=== PATIENT | male | born 1980 | race Caucasian/White ===

== ENCOUNTER 2025-05-21 08:33 | Emergency (ER) | payer OTHER, SELFPAY ==
--- OUTSIDE RECORDS SUMMARY | 2016-03-11 08:50 | XMS_ITS | Continuity of Care Document ---
Author Organization [facility] Address [address] [place] [address] Phone Care Team Providers Care Nutrition Tech Name Role Phone Mayur Fay MD Unavailable Unavailable Allergies, Adverse Reactions, Alerts Substance Reaction Status Criticality No Known Allergies Active No Inform ation Medications Medication Instructions Dosage Effective Dates (start - stop) Status Comments Naprosyn 500 mg tablet take 1 tablet by oral route 2 times every day with food 500 MG - Active Procedures Procedure Date OFFICE/OUTPATIENT VISIT EST POSTOP FOLLOW-UP VISIT POSTOP FOLLOW-UP VISIT POSTOP FOLLOW-UP VISIT POSTOP FOLLOW-UP VISIT OFFICE/OUTPATIENT VISIT EST OFFICE/OUTPATIENT VISIT EST OFFICE/OUTPATIENT VISIT EST RADEX SPI LUMBOSAC 2/3 VIEWS DISABILITY EXAMINATION Advance Directives Directive Yes / No Effective Date File Name No Information Encounters Encounter Description Practice Location Reason(s) For Visit Diagnoses Date Provider Providers Copied on Encounter OFFICE/OUTPA TIENT VISIT EST [facility], [address] [facility], [place], [address], [place] tel:[phone] [facility] My back pain is about the same (chief complaint) Body mass index (BMI) 28.0-28.9, adultPersonal history of nicotine dependenceLeft lumbar radiculopathyHNP (herniated nucleus pulposus), lumbar 201 6 Sumeet Merchant. [address] [place], [place], [address] . tel:[phone] [facility], [address], [address], tel:[phone] [facility] My back pain is 4/10 (chief complaint) Body mass index (BMI) 28.0-28.9, adultPersonal history of nicotine dependenceLeft lumbar radiculopathyHNP (herniated nucleus pulposus), lumbar 6 Fay Mayur. [address] [place], [place], [address] . tel: [phone] [facility], [address], [address], [place] tel:[phone] [facility] Body mass index (BMI) 28.0-28.9, adultLeft lumbar radiculopathyHNP (herniated nucleus pulposus), lumbarPersonal history of nicotine dependence 6 Fay Mayur. [address] [place], [place], [address] . tel: [phone] [facility], [address], [address], tel:[phone] [facility] I am still having some pain and cramping (chief complaint) Lumbar radiculopathyHNP (herniated nucleus pulposus), lumbarBody mass index (BMI) 28.0-28.9, adultPersonal history of nicotine dependence 6 Fay Mayur. [address] [place], [place], [address] . tel: [phone] [facility], [address], [address], [place] tel:[phone] [facility] I am doing better. I still have some pain in my leg (chief complaint) post-op (chief complaint) Body mass index (BMI) 28.0-28.9, adultPersonal history of nicotine dependenceLumbar radiculopathyHNP (herniated nucleus pulposus), lumbar Apr-2 6 Fay Mayur. [address] [place], [place], [address] . tel: [phone] [facility], [address], [address], [place] tel:[phone] [facility] Lumbar radiculopathyHNP (herniated nucleus pulposus), lumbar Mar-2 -201 6 Fay Mayur. [address] [place], [address] . tel: [phone] OFFICE/OUTPA TIENT VISIT EST [facility], [address], [address], [place] tel:[phone] [facility] My back and leg are better but not great (chief complaint) Body mass index (BMI) 28.0-28.9, adultLumbar radiculopathyHNP (herniated nucleus pulposus), lumbarPersonal history of nicotine dependence Oct- 6 Fay Mayur. [address] [place], [place], [address] . tel: [phone] OFFICE/OUTPA TIENT VISIT EST [facility], [address], [address], [place] tel:[phone] [facility] LBP and left leg pain (chief complaint) Lumbar radiculopathyHNP (herniated nucleus pulposus), lumbar Oct-08 08-201 6 Jose Galvan. [address] [place], [place], [address] . tel: [phone] OFFICE/OUTPA TIENT VISIT EST [facility], [address], [address], [place] tel:[phone] [facility] LBP and left leg pain (chief complaint) HNP (herniated nucleus pulposus), lumbarLumbar radiculopathy Fe- 6 Jose Galvan. [address] [place], [place], [address] . tel: [phone] [facility], [address], [address], [place] tel:[phone] [facility] Lumbar radiculopathyHNP (herniated nucleus pulposus), lumbar Feb-1 9-201 6 Sumeet Merchant. [address], [place], [place], [address] . tel: [phone] DISABILITY EXAMINATION [facility], [address], [place], [address], [place] tel:[phone] [facility] My left leg is killing me (chief complaint) Body mass index (BMI) 28.0-28.9, adultPersonal history of nicotine dependenceLow back painLumbar radiculopathyHNP (herniated nucleus pulposus), lumbar Feb-0 1-201 6 Sumeet Merchant. [address], [place], [place], [address] . tel: [phone] Family History Family Member Type Diagnosis Age At Onset Father Problem (finding) Alive and well Mother Problem (finding) Alive and well Payers Payer name Insurance type Covered libertarian ID Authoriza tijoel(s) No Information Social History Type Description Quantity Date Captured Comments Alcohol Use Details No Caffeine Use Details Unknown Tobacco Use Status Light cigarette smok er (1-9 cigs/day) Smoking Status Light tobacco smoker Smoking Tobacco Use Details Cigarette: No Details Available Cigarette: No Details Available Sex Male Vital Signs Date / Time: Height Weight BMI Pulse Rate Blood Pressure Temperature Respiratory Rate Body Surface Area Head Circumference Head Circ. Percentile Wt./Kaushal. Percentile BMI percentile Pulse Ox Inhaled Ox 1:47 PM 70.00 in 90.718 kg (200.00 lbs) 28.7 0 kg/m jasoner (2) Chief Complaint And Reason For Visit From encounter dated '03/11/2016 13:50'. My back pain is about the same (chief complaint) Reason For Referral Reason For Referral No Information Plan Of Treatment Date Type Action Status Goal Tobacco cessation counseling completed Goal Tobacco cessation counseling completed Goal Tobacco cessation counseling completed Goal Tobacco cessation counseling completed Goal Tobacco cessation counseling completed Goal Tobacco cessation counseling completed Referral Ordered: RADEX CH 2 VIEWS FRNT&LAT ordered Referral Ordered: INJ FORAMEN EPIDURAL L/S LT S1 Appointment date/timeframe: 09/29/2015 ordered Referral Ordered: RADEX SPI LUMBOSAC 2/3 VIEWS ordered History Of Present Illness Encounter Date Complaint History Of Prese nt Illness My back pain is about the same My back pain is 4/10 I am still having some pain and cramping I am doing better. I still have some pain in my leg My back and leg are better but n ot great LBP and left leg pain LBP and left leg pain My left leg is killing me Functional Status Date Functional Assessmen t No Information Instructions Date Instruction Additional Infor mation Continue home exercise program. Related to Left lumbar radiculopathy Continue home exercise program. Related to Lumbar radiculopathy Take medication as directed. Rel ated to Lumbar radiculopathy Rest, ice and elevate. Related t o Lumbar radiculopathy Rest, ice and elevate. Related t o Lumbar radiculopathy Take medication as directed. Rel ated to Lumbar radiculopathy Dietary needs education Related to Body mass index (BMI) 28.0-28.9, adult Assessments Type Assessment Date assessment Body mass index (BMI) 28.0-28.9, adult assessment Personal history of nicotine dep endence assessment Left lumbar radiculopathy assessment HNP (herniated nucleus pulposus) , lumbar Patient Care Teams Name Effective Dates (start - stop) Status Members No Information
--- OUTSIDE RECORDS SUMMARY | 2016-03-11 08:50 | XMS_ITS | Continuity of Care Document ---
Author Organization [facility] Address [address] [place] [address] Phone Care Team Providers Care Technology Officer Name Role Phone Mayur Fay MD Unavailable [...] OFFICE/OUTPA TIENT VISIT EST [facility], [address] [facility], [place], [address], [place] tel:[phone] [facility] My back pain is about the same (chief complaint) Body mass index (BMI) 28.0-28.9, adultPersonal history of nicotine dependenceLeft lumbar radiculopathyHNP (herniated nucleus pulposus), lumbar 201 6 Sumeet Merchant. [address] [place], [place], [address] . tel:[phone] [facility], [address], [address], tel:[phone] [facility] My back pain is 4/10 (chief complaint) Body mass index (BMI) 28.0-28.9, adultPersonal history of nicotine dependenceLeft lumbar radiculopathyHNP (herniated nucleus pulposus), lumbar 6 Fay Mayur. [address] [place], [place], [address] . tel: [phone] [facility], [address], [address], [place] tel:[phone] [facility] Body mass index (BMI) 28.0-28.9, adultLeft lumbar radiculopathyHNP (herniated nucleus pulposus), lumbarPersonal history of nicotine dependence 6 Fay Mayur. [address] [place], [place], [address] . tel: [phone] [facility], [address], [address], tel:[phone] [facility] I am still having some pain and cramping (chief complaint) Lumbar radiculopathyHNP (herniated nucleus pulposus), lumbarBody mass index (BMI) 28.0-28.9, adultPersonal history of nicotine dependence 6 Fay Mayur. [address] [place], [place], [address] . tel: [phone] [facility], [address], [address], [place] tel:[phone] [facility] I am doing better. I still have some pain in my leg (chief complaint) post-op (chief complaint) Body mass index (BMI) 28.0-28.9, adultPersonal history of nicotine dependenceLumbar radiculopathyHNP (herniated nucleus pulposus), lumbar Apr-2 6 Fay Mayur. [address] [place], [place], [address] . tel: [phone] [facility], [address], [address], [place] tel:[phone] [facility] Lumbar radiculopathyHNP (herniated nucleus pulposus), lumbar Mar-2 -201 6 Fya Mayur. [address] [place], [place], [address] . tel: [phone] OFFICE/OUTPA TIENT VISIT EST [facility], [address], [address], [place] tel:[phone] [facility] My back and leg are better but not great (chief complaint) Body mass index (BMI) 28.0-28.9, adultLumbar radiculopathyHNP (herniated nucleus pulposus), lumbarPersonal history of nicotine dependence Oct- 6 Fay Mayur. [address] [place], [place], [address] . tel: [phone] OFFICE/OUTPA TIENT VISIT EST [facility], [address], [address], [place] tel:[phone] [facility] LBP and left leg pain (chief complaint) Lumbar radiculopathyHNP (herniated nucleus pulposus), lumbar Oct-08 08-201 6 Jose Galvan. [address] [place], [place], [address] . tel: [phone] OFFICE/OUTPA TIENT VISIT EST [facility], [address], [address], [place] tel:[phone] [facility] LBP and left leg pain (chief complaint) HNP (herniated nucleus pulposus), lumbarLumbar radiculopathy Fe- 6 Jose Galvan. [address] [place], [place], [address] . tel: [phone] [facility], [address], [address], [place] tel:[phone] [facility] Lumbar radiculopathyHNP (herniated nucleus pulposus), lumbar Feb-1 9-201 6 Sumeet Merchant. [address], [place], [place], [address] . tel: [phone] DISABILITY EXAMINATION [facility], [address], [place], [address], [place] tel:[phone] [facility] My left leg is killing me (chief complaint) Body mass index (BMI) 28.0-28.9, adultPersonal history of nicotine dependenceLow back painLumbar radiculopathyHNP (herniated nucleus pulposus), lumbar Feb-0 1-201 6 Sumeet Merchant. [address], [place], [place], [address] . tel: [phone] Family History Family Member Type Diagnosis Age At Onset Father Problem (finding) Alive and well Mother Problem (finding) Alive and well Payers Payer name Insurance type Covered constitution party ID Authoriza tijoel(s) No Information Social History [...]
--- OUTSIDE RECORDS SUMMARY | 2022-05-20 04:36 | XMS_ITS | Continuity of Care Document ---
Author Organization [facility] Address [address] [place] [address] [address] [place] [address] Phone Care Team Providers Care Roller Coaster Designer Name Role Phone Derrell Garcia PT Unavailable Unavailable Procedures Procedure Date Therapeutic Activities Progress Note Neuromuscular Re-Ed Therapeutic Exercise Therapeutic Activities Neuromuscular Re-Ed Therapeutic Exercise Neuromuscular Re-Ed Therapeutic Activities Therapeutic Exercise Therapeutic Activities Neuromuscular Re-Ed Therapeutic Exercise Manual Therapy Neuromuscular Re-Ed Therapeutic Exercise Manual Therapy Therapeutic Activities PT Evaluation Low Complexity Therapeutic Activities Therapeutic Exercise Neuromuscular Re-Ed Manual Therapy PHYSICAL PERFORMANCE TEST WORK CONDITIONING INITIAL 2 HOURS WORK CONDITIONING ADD'L HRS WORK CONDITIONING INITIAL 2 HOURS WORK CONDITIONING ADD'L HRS WORK COND/WORK HARD RE EVAL WORK CONDITIONING INITIAL 2 HOURS WORK CONDITIONING ADD'L HRS WORK CONDITIONING INITIAL 2 HOURS WORK CONDITIONING ADD'L HRS WORK CONDITIONING INITIAL 2 HOURS WORK CONDITIONING ADD'L HRS WORK CONDITIONING INITIAL 2 HOURS WORK CONDITIONING ADD'L HRS WORK CONDITIONING INITIAL 2 HOURS WORK CONDITIONING ADD'L HRS WORK CONDITIONING INITIAL 2 HOURS WORK CONDITIONING ADD'L HRS Work Cond Initial Report THERAPEUTIC EXERCISES NEUROMUSCULAR RE-ED MANUAL THERAPY FUNC ACTIVITY THERAPEUTIC EXERCISES NEUROMUSCULAR RE-ED MANUAL THERAPY FUNC ACTIVITY THERAPEUTIC EXERCISES NEUROMUSCULAR RE-ED MANUAL THERAPY FUNC ACTIVITY THERAPEUTIC EXERCISES NEUROMUSCULAR RE-ED MANUAL THERAPY FUNC ACTIVITY THERAPEUTIC EXERCISES NEUROMUSCULAR RE-ED MANUAL THERAPY FUNC ACTIVITY PT EVALUATION THERAPEUTIC EXERCISES HOT/COLD PACK THERAPEUTIC EXERCISES NEUROMUSCULAR RE-ED MANUAL THERAPY FUNC ACTIVITY PT RE-EVALUATION THERAPEUTIC EXERCISES NEUROMUSCULAR RE-ED MANUAL THERAPY FUNC ACTIVITY HOT/COLD PACK ELECTRIC STIMULATION UNATT THERAPEUTIC EXERCISES NEUROMUSCULAR RE-ED MANUAL THERAPY FUNC ACTIVITY HOT/COLD PACK ELECTRIC STIMULATION UNATT THERAPEUTIC EXERCISES NEUROMUSCULAR RE-ED MANUAL THERAPY FUNC ACTIVITY HOT/COLD PACK ELECTRIC STIMULATION UNATT THERAPEUTIC EXERCISES NEUROMUSCULAR RE-ED MANUAL THERAPY FUNC ACTIVITY HOT/COLD PACK ELECTRIC STIMULATION UNATT b-25-2016 PT EVALUATION THERAPEUTIC EXERCISES HOT/COLD PACK ELECTRIC STIMULATION [facility] Advance Directives Directive Yes / No Effective Date File Name No Information Encounters Encounter Description Practice Location Reason(s) For Visit Diagnoses Date Provider Providers Copied on Encounter [facility] [address], [place], [place], [address], tel:[phone] [place] No Information 2 Jose Derrell. . [facility], [place], [place], [address], [place] tel:[phone] [place] No Information Apr- 2 Jose Derrell. . Referring Provider: Ramon Fay, [address] [facility] [address], [place], [address]. tel:[phone] [facility] [address], [place], [place], [address], [place] tel:[phone] [place] No Information Sep-2 2 Jose Derrell. . Referring Provider: Ramon Fay [address] [place] [address], [place], [address]. tel:[phone] [facility], [place], [place], [address], [place] tel:[phone] [place] No Information Sep-2 2 Jose Derrell. . Referring Provider: Ramon Fay [address] [place] [address], [place], [address]. tel:[phone] [facility] [address], [place], [place], [address], [place] tel:[phone] [place] No Information Apr- 2 Aurelia Stone. . Referring Provider: Ramon Fay [address], [place], [address]. tel:[phone] [facility], [place], [place], [address], [place] tel:[phone] [place] No Information 2 Modglin Andrei. . Referring Provider: Ramon Fay, [address] [facility] [address], [place], [address]. tel:[phone] [facility] [address], [place], [place], [address], tel:[phone] [place] No Information 2 Modglin Andrei. . Referring Provider: Ramon Fay, [address] [facility] [address], [place], [address]. tel:[phone] [facility] [address], [place], [place], [address], tel:[phone] [place] No Information 6 Zuccarello John. . Referring Provider: Ramon Fay [address] [address], [place], [address]. tel:[phone] [facility] [address], [place], [place], [address], [place] tel:[phone] [place] No Information 6 [place]. Referring Provider: Ramon Fay, [address] [address], [place], [address]. tel:[phone] [facility] [address] [facility] [address], [place], [place], [address], [place] tel:[phone] [place] No Information 6 [place]. Referring Provider: Ramon Fay [address] [address], [place], [address]. tel:[phone] [facility] [address], [place], [place], [address], [place] tel:[phone] [place] No Information 6 [place]. Referring Provider: Ramon Fay [address] [address], [place], [address]. tel:[phone] [facility], [place], [place], [address], [place] tel:[phone] [place] No Information 6 Hussein Dvoe. [address] [place] [address], [address], [place], [place], [facility], . tel:[phone] Referring Provider: Ramon Fay, [address], [place], [address]. tel:[phone] [facility], [place], [place], [address], [place] tel:[phone] [place] No Information 0 6 [facility] [place] Referring Provider: Ramon Fay, [address], [place], [address]. tel:[phone] [facility] [address], [place], [place], [address], [place] tel:[phone] [place] No Information 6 [facility] Referring Provider: Ramon Fay [address], [place], [address]. tel:[phone] [facility], [place], [place], [address], [place] tel:[phone] [place] No Information 6 Laz Mallory. [address] [place] [address], [address], [place], [place], [facility], [place]. tel:[phone] Referring Provider: Ramon Fay [address], [place], [address]. tel:[phone] [facility], [place], [place], [address], [place] tel:[phone] [place] No Information 3 6 [facility]. Referring Provider: Ramon Fay [address], [place], [address]. tel:[phone] [facility], [address], [place], [place], [address], [place] tel:[phone] [place] No Information 6 Zaragoza Gabriel. , [place], [place]. Referring Provider: Ramon Fay, [address], [place], [address]. tel:[phone] [facility] [address], [place], [place], [address], [place] tel:[phone] [place] No Information 6 Zaragoza Gabriel. , [place], [place]. Referring Provider: Ramon Fay, [address], [place], [address]. tel:[phone] [facility], [address], [place], [place], [address], [place] tel:[phone] [place] No Information 6 Zaragoza Gabriel. , [place], [place]. Referring Provider: Ramon Fay, [address], [place], [address]. tel:[phone] [facility], [place], [place], [address], [place] tel:[phone] [place] No Information 6 Zaragoza Gabriel. , [place], [place]. Referring Provider: Ramon Fay, [address], [place], [address]. tel:[phone] [facility] [address], [place], [place], [address], [place] tel:[phone] [place] No Information 6 Zaragoza Gabriel. , [place], [place]. Referring Provider: Ramon Fay, [address], [place], [address]. tel:[phone] [facility], [place], [place], [address], [place] tel:[phone] [place] No Information 6 Zaragoza Gabriel. , [place], [place]. Referring Provider: Ramon Fay, [address], [place], [address]. tel:[phone] [facility] [address], [place], [place], [address], [place] tel:[phone] [place] No Information May-1 9-201 6 Zaragoza Gabriel. , [place], [place]. Referring Provider: Ramon Fay [address] [place] [address], [place], [address]. tel:[phone] [facility] [address], [place], [address], [place] tel:[phone] [place] No Information Mar-1 0-201 6 Zaragoza Gabriel. , [place], [place]. Referring Provider: Ramon Fay, [address], [place], [address]. tel:[phone] [facility] [address], [place], [address], [place] tel:[phone] [place] No Information Mar-0 8-201 6 Zaragoza Gabriel. , [place], [place]. Referring Provider: Ramon Fay [address], [place], [address]. tel:[phone] [facility] [address], [place], [place], [address], [place] tel:[phone] [place] No Information Mar-0 3-201 6 Zaragoza Gabriel. , [place], [place]. Referring Provider: Ramon Fay [address], [place], [address]. tel:[phone] [facility] [address], [place], [place], [address], [place] tel:[phone] [place] No Information Mar-0 1-201 6 Zaragoza Gabriel. , [place], [place]. Referring Provider: Ramon Fay [address], [place], [address]. tel:[phone] [facility], [place], [place], [address], [place] tel:[phone] [place] No Information 6 [place], . Referring Provider: Ramon Fay, [address], [place], [address]. tel:[phone] [facility], [address], [place], [place], [address], tel:[phone] [place] Radiculopathy, site unspecifiedDor salgia, unspecifiedPai n in left legSciatica, left side 6 [place], . Referring Provider: Ramon Fay, [address], [place], [address]. tel:[phone] Family History Family Member Type Diagnosis Age At Onset No Information Payers Payer name Insurance type Covered libertarian ID Authoriza tijoel(s) [employer] WC [id number] [employer] SP WC 00 Social History Type Description Quantity Date Captured Comments Sex Male Smoking Status No Information Chief Complaint And Reason For Visit No Information Reason For Referral Reason For Referral No Information History Of Present Illness Encounter Date Complaint History Of Prese nt Illness No Information Functional Status Date Functional Assessmen t No Information Instructions Date Instruction Additional Infor matdominique Giving encouragement to exercise Related to Overweight Giving encouragement to exercise Related to Overweight Assessments Type Assessment Date No Information Patient Care Teams Name Effective Dates (start - stop) Status Members No Information
--- OUTSIDE RECORDS SUMMARY | 2022-05-20 04:36 | XMS_ITS | Continuity of Care Document ---
Author Organization [facility] Address [address] [place] [address] [address] [place] [address] Phone Care Team Providers Care Cnc Supervisor Name Role Phone Derrell Garcia PT Unavailable Unavailable Procedures Procedure Date Therapeutic Activities Progress Note Therapeutic Exercise Neuromuscular Re-Ed Therapeutic Activities Therapeutic Exercise Neuromuscular Re-Ed Therapeutic Activities Neuromuscular Re-Ed Therapeutic Exercise Therapeutic Activities Neuromuscular Re-Ed Therapeutic Exercise Manual Therapy Neuromuscular Re-Ed Therapeutic Exercise Therapeutic Activities Manual Therapy PT Evaluation Low Complexity Therapeutic Activities Therapeutic [...] EVALUATION THERAPEUTIC EXERCISES HOT/COLD PACK ELECTRIC STIMULATION [facility], [facility] Advance Directives Directive Yes / No Effective Date File Name No Information Encounters Encounter Description Practice Location Reason(s) For Visit Diagnoses Date Provider Providers Copied on Encounter [facility] [address], [place], [place], [id number], tel:[phone] [place] No Information 2 Jose Derrell. . [facility], [place], [place], [address], [place] tel:[phone] [place] No Information Apr- 2 Jose Derrell. . Referring Provider: Ramon Fay, [address] [facility] [address], [place], [address]. tel:[phone] [facility] [address], [place], [place], [address], [place] tel:[phone] [place] No Information Sep-2 2 Jose Derrell. . Referring Provider: Ramon Fay [address], [place], [address]. tel:[phone] [facility], [place], [place], [address], [place] tel:[phone] [place] No Information Sep-2 2 Jose Derrell. . Referring Provider: Ramon Fay [address], [place], [address]. tel:[phone] [facility] [address], [place], [place], [address], [place] tel:[phone] [place] No Information Apr- 2 Aurelia Stone. . Referring Provider: Ramon Fay [address], [place], [address]. tel:[phone] [facility], [place], [place], [address], [place] tel:[phone] [place] No Information 2 Modglin Andrei. . Referring Provider: Ramon Fay, [address] [facility] [address], [place], [address]. tel:[phone] [facility] [address], [place], [place], [address], tel:[phone] [place] No Information 2 Modglin Andrei. . Referring Provider: Ramon Fay, [address] [facility] [address], [place], [address]. tel:[phone] [facility] [address], [place], [place], [address], tel:[phone] [place] No Information 6 Zuccarello John. . Referring Provider: Ramon Fay [address] [address], [place], [address]. tel:[phone] [facility] [address], [place], [place], [address], [place] tel:[phone] [place] No Information 6 [place], [place]. Referring Provider: Ramon Fay, [address] [address], [place], [address]. tel:[phone] [facility] [address] [facility], [place], [place], [address], [place] tel:[phone] [place] No Information 6 [place]. Referring Provider: Ramon Fay [address] [address], [place], [address]. tel:[phone] [facility] [address], [place], [place], [address], [place] tel:[phone] [place] No Information 6 [place]. Referring Provider: Ramon Fay [address] [address], [place], [address]. tel:[phone] [facility], [place], [place], [address], [place] tel:[phone] [place] No Information 6 Hussein Dove. [address] [place] [address], [address], [place], [facility], . tel:[phone] Referring Provider: Ramon Fay, [address], [place], [address]. tel:[phone] [facility], [place], [place], [address], [place] tel:[phone] [place] No Information 0 6 [facility] Referring Provider: Ramon Fay, [address], [place], [address]. tel:[phone] [facility] [address], [place], [place], [address], [place] tel:[phone] [place] No Information 6 [facility] [place] Referring Provider: Ramon Fay [address], [place], [address]. tel:[phone] [facility], [place], [place], [address], [place] tel:[phone] [place] No Information 6 Laz Mallory. [address] [place] [address], [address], [place], [place], [facility], [place]. tel:[phone] Referring Provider: Ramon Fay [address], [place], [address]. tel:[phone] [facility], [place], [place], [address], [place] tel:[phone] [place] No Information 3 6 [facility] [place] Referring Provider: Ramon Fay [address], [place], [address]. tel:[phone] [facility], [address], [place], [place], [address], [place] tel:[phone] [place] No Information 6 Zaragoza Gabriel. , [place], [place]. Referring Provider: Ramon Fay, [address], [place], [address]. tel:[phone] [facility] [address], [place], [place], [address], [place] tel:[phone] [place] No Information 6 Zaragoza Gabriel. , [place], [place]. Referring Provider: Ramon Fay, [address], [place], [address]. tel:[phone] [facility], [address], [place], [place], [address], [place] tel:[phone] [place] No Information 6 Zaragoza Gabriel. , [place], [place]. Referring Provider: Ramon Fay, [address], [place], [address]. tel:[phone] [facility], [place], [place], [address], [place] tel:[phone] [place] No Information 6 Zaragoza Gabriel. , [place], [place]. Referring Provider: Ramon Fay, [address], [place], [address]. tel:[phone] [facility] [address], [place], [place], [address], [place] tel:[phone] [place] No Information 6 Zaragoza [place]. , [place], [place]. Referring Provider: Ramon Fay, [address], [place], [address]. tel:[phone] [facility], [place], [place], [address], [place] tel:[phone] [place] No Information 6 Zaragoza Gabriel. , [place], [place]. Referring Provider: Ramon Fay, [address], [place], [address]. tel:[phone] [facility] [address], [place], [place], [address], [place] tel:[phone] [place] No Information May-1 9-201 6 Zaragoza Gabriel. , [place], [place]. Referring Provider: Ramon Fay [address], [place], [address]. tel:[phone] [facility] [address], [place], [place], [address], [place] tel:[phone] [place] No Information Mar-1 0-201 6 Zaragoza Gabriel. , [place], [place]. Referring Provider: Ramon Fay, [address], [place], [address]. tel:[phone] [facility] [address], [place], [place], [address], [place] tel:[phone] [place] No Information Mar-0 8-201 6 Zaragoza Gabriel. , [place], [place]. Referring Provider: Ramon Fay [address], [place], [address]. tel:[phone] [facility] [address], [place], [place], [address], [place] tel:[phone] [place] No Information Mar-0 3-201 6 Zaragoza Gabriel. , [place], [place]. Referring Provider: Ramon Fay [address], [place], [address]. tel:[phone] [facility] [address], [place], [place], [address], [place] tel:[phone] [place] No Information Mar-0 1-201 6 Zaragoza Gabriel. , [place], [place]. Referring Provider: Ramon Fay [address], [place], [address]. tel:[phone] [facility], [place], [place], [address], [place] tel:[phone] [place] No Information 6 [place], . Referring Provider: Ramon Fay, [address], [place], [address]. tel:[phone] [facility], [address], [place], [place], [address], tel:[phone] [place] Radiculopathy, site unspecifiedDor salgia, unspecifiedPai n in left legSciatica, left side 6 [place], . Referring Provider: Ramon Fay, [address], [place], [address]. tel:[phone] Family History Family Member Type Diagnosis Age At Onset No Information Payers Payer name Insurance type Covered green party ID Authoriza tijoel(s) [employer] WC [id number] [employer] SP WC 00 [...]
--- NOTE | 2025-05-21 08:36 | ED_ITS ---
HPI - Skin/Abscess/Foreign Bdy General Chief complaint: Skin/Abscess/Foreign Body Stated complaint: poison hayley Time Seen by Provider: 05/21/25 08:54 Source: patient, RN notes reviewed and old records reviewed Mode of arrival: ambulatory Limitations: no limitations History of Present Illness HPI narrative: 45-year-old male presents to the [facility] with concerns of a rash to the buttock. Symptoms started 1 week ago. Patient states that he is afraid he might have gotten a rash when he squatted in the crews. Rubbing alcohol and [id number] cream. Related Data Allergies Allergy/AdvReac Type Severity Reaction Status Date / Time No Known Allergies Allergy Verified 05/21/25 08:42 Review of Systems Review of Systems: All systems reviewed & are unremarkable except as noted in HPI and below Constitutional: Constitutional: Reports no additional constitutional complaints ENT: Reports system reviewed and no additional complaints, except as documented Cardiovascular: Cardiovascular: Reports no additional cardiovascular complaints, Denies chest pain and Denies dyspnea Respiratory: Respiratory: Reports no additional respiratory complaints, Denies chest congestion, Denies cough and Denies dyspnea Musculoskeletal: Musculoskeletal: Reports no additional musculoskeletal complaints Integumentary/Breasts: Skin/Breast: Reports as per HPI and Reports rash PMFSH Comments At the time of my signature, I reviewed and agree with the nursing past medical, surgical, social, and family history. There is no relevant family history pertinent to the patient complaint. Exam Const: General: cooperative, healthy appearing, comfortable, no acute distress, well developed, alert and well nourished Nutritional Appearance: well nourished Orientation/consciousness: patient oriented x3 Limitations: no limitations HENMT: Head: normal to inspection Eyes: General: appearance normal, both eyes and all related structures Alignment and Position: alignment normal Neck: Neck: normal visual inspection, full ROM, no lymphadenopathy and no meningeal signs Chest: Chest palpation & inspection: normal inspection of the chest Resp: Effort & Inspection: normal respiratory effort and able to speak in complete sentences Cardio: Rate: regular rate Skin: General skin exam: normal color and no rashes or lesions noted Other: [place] area, raw in appearance to between the buttocks lower consistent with yeast, unlikely poison hayley Neuro: General: patient oriented x3, gait normal, moves all extremities and no meningeal signs Cognition (Neuro): normal cognition Speech: normal speech Gait exam (Neuro): Normal gait present Extrem: General: normal to inspection, full ROM, capillary refill normal and normal gait Psych: Appearance: grossly normal and well kempt Mental Status: mental status grossly normal Speech and movement: Normal speech and movement present and Clear speech present Affect: normal affect Attitude: cooperative Course Course Level of Care: Express Care Visit Vital Signs Vital signs: Vital Signs Temperature 97.4 F L 05/21/25 08:38 Pulse Rate 77 05/21/25 08:38 Respiratory Rate 20 05/21/25 08:38 Blood Pressure 161/77 H 05/21/25 08:38 Pulse Oximetry 100 05/21/25 08:38 Oxygen Delivery Room Air 05/21/25 08:38 Temperature 97.4 F L 05/21/25 08:38 Pulse Rate 77 05/21/25 08:38 Respiratory Rate 20 05/21/25 08:38 Blood Pressure 161/77 H 05/21/25 08:38 Pulse Oximetry 100 05/21/25 08:38 Oxygen Delivery Room Air 05/21/25 08:38 Reviewed MDM - Skin/Abscess/Foreign Bdy MDM Narrative Medical decision making narrative: Patient sitting in exam room. Patient is nontoxic, vitals stable except blood pressure mildly elevated. Patient presents with a rash in the rectal area, red raw, consistent with yeast infection versus dermatitis. Patient appropriate for outpatient treatment and close follow-up Discharge instructions reviewed with patient, as well as provided in writing per nursing staff. The instructions also include specific and strict return/GO TO THE ER as well as f/u information. All questions have been answered, and the patient deny any further questions with discharge and discharge plan. Some parts of this dictation were generated by voice recognition software and may contain typographical and/or grammatical inaccuracies. Differential Diagnosis Differential diagnosis: Likely abscess of skin or subcutaneous tissue, urticaria, cellulitis and contact dermatitis Critical Care Time Critical Care Time Critical Care Time: No Discharge Plan Discharge Clinical Impression: Yeast dermatitis Patient Disposition: Home Condition: Stable Instructions: Antibiotic Form, Skin Yeast Infection (ED) Additional Instructions: Keep area clean and dry. Wash with warm soapy water make sure you dry it extremely well. Apply the cream to the area twice daily. Today your blood pressure was 161/87 we highly recommend that you do follow-up with a primary care provider to have this worked up. Blood pressure if left untreated or undertreated can lead to more serious health issues such as but not limited to heart attacks, strokes, kidney failure, erectile dysfunction If you are having a hard time finding a physician please call our [facility] liaison at [phone]. Patient Language: Armenian Prescriptions: New nystatin 100,000 unit/gram cream 1 applic topical BID 7 Days Qty: 15 0RF Follow-up/Referrals: UNKNOWN,DOCTOR [Non-Staff] Stand Alone Forms: Work/School Release IP Time of Disposition: 09:05
[2025-05-21 08:38] VITALS: BP 161/77; PULSE 77; RESP 20; TEMP 36.3; O2SAT 100
--- OUTSIDE RECORDS SUMMARY | 2025-05-21 08:38 | XMS_ITS | Clinical Summary ---
Author Organization [facility] [employer] Address [address] [place] [address] Care Team Providers Care Engine Monitor Name Role Phone Joon Kemp MD Primary Care Provider [phone] Source Comments [facility] [employer],non-owned Affiliates and Associated Physician Practices is amultiple site organization consisting of ambulatory clinics and hospital sitesin [place], [place], [place] and [place]. This disclosure is being madepursuant to the Care Everywhere program and may not contain all information available regarding this patient. Last updated 18.[facility] [employer] Allergies No known active allergies Medications * Be aware that medications may not be up to date on this document. Alwaysverify current medications with the patient. albuterol HFA (VENTOLIN HFA) 108 (90 BASE) MCG/ACT inhaler Inhale 2 puffs by mouth every 4 hours as needed for Wheezing or Cough 1 Inhaler 08/13/2017 Active Active Problems No known active problems Social History Tobacco Use Types Packs/Day Years Used Date Smoking Tobacco: Every Day Smokeless Tobacco: Never Sex and Gender Information Value Date Recorded Sex Assigned at Not on file Legal Sex Male 4:16 PM [employer] Gender Identity Not on file Sexual Orientation Not on file Last Filed Vital Signs Vital Sign Reading Time Taken Comments Blood Pressure 108/72 08/13/2017 9:11 AM [employer] Pulse 91 08/13/2017 9:11 AM [employer] Temperature 37.3 C (99.1 F) 08/13/2017 9:11 AM [employer] Respiratory Rate 16 08/13/2017 9:11 AM [employer]ER Oxygen Saturation 97% 08/13/2017 9:11 AM [employer] Inhaled Oxygen Concentration - - Weight 95.3 kg (210 lb) 08/13/2017 9:11 AM [employer] Height 177.8 cm (5' 10) 08/13/2017 9:11 AM [employer] Body Mass Index 30.13 08/13/2017 9:11 AM C[employer]OM [employer]OTHIER Plan of Treatment Health Maintenance Due Date Last Done Comments COLOGUARD (AGES 45-75) - COL ON CA SCREENING 1978 COLON MONITORING 1978 COLONOSCOPY - COLON CA SCREENING 1978 CT COLONOGRAPHY - COLON CA SCREENING 1978 Colorectal Cancer Screening 1978 FIT - COLON CA SCREENING 1978 FLEX SIG - COLON CA SCREENING 1978 LIPID TESTING 1978 HIV SCREENING 1993 HEPATITIS C SCREENING 02/24/1996 DTAP/TDAP/TD VACCINES (1 - Tdap) 1997 HEPATITIS B VACCINE (1 of 3 - 19+ 3-dose series) 1997 DEPRESSION SCREENING 08/04/2024 COVID-19 VACCINE (1 - 2023-2 5 season) 2025 INFLUENZA VACCINE (#1) 2025 ZOSTER VACCINE (1 of 2) 02/29/2028 HIB VACCINE Aged Out No longer eligi ble based on patient's age to complete this topic HPV VACCINE Aged Out No longer eligi ble based on patient's age to complete this topic MENINGOCOCCAL (Group B) VACC INE SHARED DECISION-MAKING Aged Out No longer eligibl e based on patient's age to complete this topic MENINGOCOCCAL GROUPS A/C/Y/W VACCINE Aged Out No longer eligible b ased on patient's age to complete this topic PNEUMOCOCCAL VACCINE Aged Out No long er eligible based on patient's age to complete this topic Insurance [facility] Care Teams Engine Monitor Relationship Specialty Start Date End Date Joon Kemp MD [address] [address] PCP - General Family Medicine 08/13/17
== END 2025-05-21 09:09 | disposition home or self-care (01) ==
PROVIDERS: Emergency Provider Nurse Practitioner
DX: B37.2 Candidiasis of skin and nail (principal)
CPT/HCPCS: 99203; G0463